=== PATIENT | male | born 1965 | race American Indian/Alaskan Native ===

== ENCOUNTER 2020-05-17 14:31 | Emergency (ER) | payer SELFPAY ==
--- NOTE | 2020-05-17 14:54 | Emergency Department Report ---
ED CPR HPI - General Stated Complaint: CA Time Seen by Provider: 05/17/20 14:49 - History of Present Illness Initial Comments: 54-year-old male presents to the ED in cardiac arrest. EMS was initially called out for complaint of chest pain. Patient was found sitting on the floor of his workplace, diaphoretic, and complaining of chest pain. Patient reported to EMS that he had a history of "heart problems."Prehospital EKG was transmitted which appeared to show anterior STEMI. Patient was slightly hypotensive in the field, with systolic BP in the 100s. STEMI alert was called. EMS reports patient received aspirin prehospital. Upon arrival patient became unresponsive. Patient had no palpable pulses, so ACLS was initiated. Dr. Stu martinez, change release manager, at bedside. MD Complaint: other (Chest pain) Initial Findings in the Field: alert, good pulses Associated Symptoms: chest pain ED Review of Systems ROS: Stated complaint: CA Other details as noted in HPI Comment: Unobtainable due to pts medical conditions Cardiovascular: chest pain ED Physical Exam - General General appearance: obtunded - Head Head exam: Present: atraumatic, normocephalic - ENT ENT exam: Present: mucous membranes moist - Neck Neck exam: Present: normal inspection - Respiratory Respiratory exam: Present: other (No spontaneous respirations) - Cardiovascular Cardiovascular Exam: Present: other (No palpable pulse) - GI/Abdominal GI/Abdominal exam: Present: soft. Absent: distended - Extremities Exam Extremities exam: Present: normal inspection - Neurological Exam Neurological exam: Present: other (GCS=3) - Skin Skin exam: Present: warm, dry, intact, normal color - Intubation Time Out Performed: No Sedative: none Laryngoscope: Dar Size: 4 ET Tube Size: 7.5 Tube Secured Depth (cm): 22 Tube Placement Confirmation: visualized tube passing t, equal breath sounds bilat, no breath sounds over epi, confirmation by capnometr Patient Tolerated Procedure: well Intubation Complications: none ED Medical Decision Making - EKG Data -: EKG Interpreted by Me EKG shows normal: sinus rhythm, QRS complexes Rate: tachycardia (rate 102) - EKG Data Interpretation: LVH, other (ST elevations present V1 -V4; ST depressions present and II, III, aVF) 05/17/20 15:02 EKG read is from prehospital EKG transmitted from EMS. - Medical Decision Making Upon arrival, patient found to be unresponsive and pulseless. ACLS was immediately initiated. Patient was intubated by me. Patient received 1 defibrillation for what appeared to be V. fib on the monitor. He subsequently received amiodarone as well. Patient in PEA afterwards. In total, patient received epi x4, and sodium bicarb x1. Dr. Bravo and automated access systems technician at bedside. No cardiac activity apparent on echo. Time of was called at 14:42. Please see nurse's note for additional code details. Critical Care Time: Yes Critical care time in (mins) excluding proc time.: 35 Critical care attestation.: If time is entered above; I have spent that time in minutes in the direct care of this critically ill patient, excluding procedure time. Critical Care Time: 35 min ED Disposition Clinical Impression: STEMI (ST elevation myocardial infarction), Cardiac arrest Disposition: DC-20 Is pt being admited?: No Condition: Stable Time of Disposition: 15:02
[2020-05-17] MEDS ORDERED: SODIUM CHLORIDE 0.9% 1000 ML 1,000 ML ONE (16:47)
== END 2020-05-17 15:00 ==
LOC: EDBD → ED 14:31
DX: R07.89 Other chest pain (principal); I21.3 ST elevation (STEMI) myocardial infarction of unspecified site; I46.9 Cardiac arrest, cause unspecified
CPT/HCPCS: 31500; 92950; 99285; J7030